=== PATIENT | male | born 1975 | race Hispanic/Latino ===

== ENCOUNTER 2016-12-01 20:54 | Emergency (ER) | payer OTHER ==
[~2016-12-01] VITALS: Ht 167.6 cm; Wt 94.3 kg
--- NOTE | 2016-12-01 21:21 | ED SKIN/ALLERGY COMPLAINT ---
History of Present Illness General Chief Complaint: Skin Rash/ Abcess Stated Complaint: RASH Source: patient Exam Limitations: no limitations Vital Signs & Intake/Output Vital Signs & Intake/Output Vital Signs Date Time Temp Pulse Resp B/P Pulse O2 O2 Flow FiO2 Ox Delivery Rate 12/013 98.1 88 18 138/92 95 Room Air 12/01 2211 84 16 150/96 12/013 99 160/98 12/012 Room Air 12/01 2128 99 160/98 97 Room Air 12/01 2100 97.3 103 18 162/110 97 Room Air ED Intake and Output 12/02 0000 12/01 1200 Intake Total 300 Output Total Balance 300 Intake, Oral 300 Patient 208 lb Weight Allergies Coded Allergies: No Known Allergies (12/01/16) Reconcile Medications Lisinopril 20 MG TABLET 1 TAB PO DAILY HYPERTENSION Prednisone 10 MG TABLET 4 TAB PO DAILY URTICARIA Triage Note: PRESENTS TO ED FOR EVALUTION OF GENERALIZED BODY RASH THAT BEGAN YESTERDAY AND HAS BEEN WORSENING SINCE. DENIED DIFF BREATHING AND NO DISTRESS IS NOTED. UPON EVALUATION OF VITALS HE WAS NOTED TO BE VERY HYPERTENSIVE AT 196/137, HE ADMITTED TO NON COMPLIANCE WITH LISINOPRIL HE CANT AFFORD IT. Triage Nurses Notes Reviewed? yes HPI: Patient is a 41-year-old male presents for evaluation of diffuse itchy rash. Patient reports an with mild H yesterday evening, today itching and rash became significantly worse. Patient has not taken any medication for his itch or rash. Patient denies any known new skin contacts, foods, medications, tongue swelling , throat swelling, dyspnea. Patient reports he has a history of hypertension. Patient has not been on blood pressure medication for several months due to lack of insurance and not being able to afford the medication. Patient denies chest pain, palpitations, headache, change in vision, numbness, weakness, dyspnea. (BILLY LOCKWOOD) Past History Travel History Traveled to [place] past 21 day No Medical History Any Pertinent Medical History? see below for history Cardiovascular: hypertension Surgical History Surgical History: non-contributory Psychosocial History What is your primary language Slovak Tobacco Use: Never used Family History Hx Contributory? No (BILLY LOCKWOOD) Review of Systems Review of Systems Constitutional: Denies: chills, fever. EENTM: Reports: no symptoms. Denies: blurred vision, visual changes. Respiratory: Denies: cough, short of breath. Cardiovascular: Denies: chest pain, palpitations, syncope. GI: Denies: abdominal pain, nausea, vomiting. Genitourinary: Reports: no symptoms. Musculoskeletal: Reports: no symptoms. Skin: Reports: see HPI. Neurological/Psychological: Reports: no symptoms. Hematologic/Endocrine: Reports: no symptoms. Immunologic/Allergic: Reports: no symptoms. (BILLY LOCKWOOD) Physical Exam Physical Exam General Appearance: well developed/nourished, alert, awake Head: atraumatic, normal appearance Eyes: Left: other (SUBCONJUNCTIVAL HEMORRHAGE). Bilateral: PERRL, EOMI. Ears, Nose, Throat: normal pharynx, normal ENT inspection, hearing grossly normal Neck: normal inspection, supple, full range of motion Respiratory: normal breath sounds, chest non-tender, no respiratory distress, lungs clear Cardiovascular: regular rate/rhythm Gastrointestinal: soft, non-tender Back: normal inspection, normal range of motion Extremities: normal inspection, normal capillary refill, normal range of motion, no edema Neurologic/Psych: no motor/sensory deficits, awake, alert, oriented x 3, normal gait, normal mood/affect Skin: diffuse urticarial rash with excoriations (BILLY LOCKWOOD) Progress Differential Diagnosis: allergic reaction, anaphylaxis, angioedema, asthma, contact dermatitis, drug reaction, urticaria, hypertension, hypertensive urgency , end organ dysfunction Plan of Care: Orders Procedure Date/time Status Add-on Test (ER Only) 12/01 2153 Active TROPONIN LEVEL 12/01 2129 Complete COMPREHENSIVE METABOLIC PANEL 12/01 2125 Complete CBC WITHOUT DIFFERENTIAL 12/01 2125 Complete EKG 12/01 2125 Active Current Medications Sig/Dyan Start time Last Medication Dose Stop Time Status Admin Amlodipine Besylate 5 MG ONCE ONE 12/01 2129 CAN (Norvasc) 12/01 2130 Laboratory Tests 12/01/162129: Anion Gap 12, Estimated GFR > 60, BUN/Creatinine Ratio 20.0, Glucose 114 H, Calcium 9.1, Total Bilirubin 0.7, AST 46, ALT 84 H, Alkaline Phosphatase 130 H , Troponin I 0.05, Total Protein 7.0, Albumin 4.0, Globulin 3.0, Albumin/ Globulin Ratio 1.3, CBC w Diff NO MAN DIFF REQ, RBC 5.38, MCV 88.1, MCH 30.1, RDW 13.7, MPV 8.7, Gran % 57.6, Lymphocytes % 32.5, Monocytes % 8.4, Eosinophils % 1.1, Basophils % 0.4, Absolute Granulocytes 4.7, Absolute Lymphocytes 2.7, Absolute Monocytes 0.7 H, Absolute Eosinophils 0.1, Absolute Basophils 0, PUBS MCHC 34.2 2215: No signs of anaphylaxis. Discussed results with patient and importance of close follow up with his primary care doctor and his corporate representative. 2250: No signs of anaphylaxis, patient concerned of lip swelling, no lip edema or airway edema appreciable on initial or repeat exam. No chest pain present. Troponon negative, creatinine normal. No signs of end organ dysfunction on physical exam. Appears stable for discharge and outpatient follow up. (BILLY LOCKWOOD) Initial ED EKG: normal sinus rhythm rate controlled, normal axis, normal intervals, T-wave flattening in the lateral leads (BILLY LOCKWOOD) Departure Departure Disposition: HOME OR SELF CARE Condition: Stable Clinical Impression Primary Impression: Urticaria Secondary Impressions: Accelerated hypertension, Subconjunctival hemorrhage of left eye Referrals: KATELYNN MORAN,GREGG Louise (PCP/Family) Additional Instructions: Take Benadryl every 6 hours for the next 24 hours, then every 6 hours as directed for itch/rash. Follow up with your primary doctor this week for further evaluation. Also contact your corporate representative tomorrow for appointment within 1-2 weeks for recheck and further evaluation. Return to the ER if chest pain, difficulty breathing, tongue swelling, throat swelling or worsening of symptoms. Departure Forms: Customer Survey General Discharge Information Prescriptions: Current Visit Scripts Prednisone 4 TAB PO DAILY #8 TAB Lisinopril 1 TAB PO DAILY #30 TAB (BILLY LOCKWOOD) PA/SERVICE ENGINEER Co-Sign Statement Statement: ED Attending supervision documentation- [] I saw and evaluated the patient. I have also reviewed all the pertinent lab results and diagnostic results. I agree with the findings and the plan of care as documented in the PA's/SERVICE ENGINEER's documentation. [X] I have reviewed the ED Record and agree with the PA's/SERVICE ENGINEER's documentation. [] Additions or exceptions (if any) to the PAs/SERVICE ENGINEER's note and plan are summarized below: [] (WELLINGTON MORAN,CARINA Streeter)
[2016-12-01 21:50] LABS: ABSOLUTE BASOPHIL COUNT 0 /CUMM (0.0-0.2); ABSOLUTE EOSINOPHIL COUNT 0.1 /CUMM (0.0-0.7); ABSOLUTE GRANULOCYTE CT 4.7 /CUMM (1.4-6.5); ABSOLUTE LYMPH COUNT 2.7 /CUMM (1.2-3.4); ABSOLUTE MONOCYTE COUNT 0.7 /CUMM (0.10-0.60); BASOPHIL % 0.4 % (0.0-2.0); EOSINOPHIL % 1.1 % (0-5); GRANULOCYTE % 57.6 % (42.2-75.2); HEMATOCRIT 47.4 % (42-52); MEAN CORPUSCULAR HGB 30.1 PG (27.0-31.0); MEAN CORPUSCULAR HGB CONC 34.2 G/DL (33.0-37.0); MEAN CORPUSCULAR VOLUME 88.1 FL (80.0-94.0); MEAN PLATELET VOLUME 8.7 FL (7.4-10.4); PLATELET COUNT 213 /CUMM (130-400); RBC DISTRIBUTION WIDTH 13.7 % (11.5-14.5); RED BLOOD CELL CT 5.38 /CUMM (4.70-6.10); WHITE BLOOD CELL COUNT 8.2 /CUMM (4.8-10.8)
[2016-12-01] MEDS ORDERED: LISINOPRIL20 M1 PO (22:22)
[2016-12-01] MEDS ORDERED: PREDNISONE10 M2 PO (22:22)
[2016-12-01 22:43] VITALS: BP 138/92
== END 2016-12-01 23:07 ==
LOC: ERH 20:54
PROVIDERS: Physician Assistant
DX: L50.9 Urticaria, unspecified (principal); I10 Essential (primary) hypertension; H11.32 Conjunctival hemorrhage, left eye
CPT/HCPCS: 93005; 93010